=== PATIENT | male | born 1995 | race Caucasian/White ===

== ENCOUNTER 2021-01-02 05:40 | Emergency (ER) | payer OTHER ==
[~2021-01-02] VITALS: Ht 180.3 cm; Wt 117.5 kg
[2021-01-02 05:46] VITALS: BP 130/92
== END 2021-01-02 07:40 | disposition home or self-care (01) ==
LOC: ER 05:40
DX: J01.90 Acute sinusitis, unspecified (principal)

== ENCOUNTER 2023-01-20 10:57 | Emergency (ER) | payer OTHER ==
[~2023-01-20] VITALS: Ht 182.9 cm; Wt 119.2 kg
[2023-01-20 11:30] VITALS: BP 118/72; PULSE 94; RESP 18; TEMP 98.4; O2SAT 96
[2023-01-20] MEDS ORDERED: IBU600T PO (11:53)
[2023-01-20] MEDS ORDERED: HYDROcodone-ACET 5/325MG TAB PO ONE (12:00)
== END 2023-01-20 12:16 | disposition home or self-care (01) ==
LOC: ER 10:57
DX: S62.394A Other fracture of fourth metacarpal bone, right hand, initial encounter for closed fracture (principal); Z88.8 Allergy status to other drugs, medicaments and biological substances; V89.2XXA Person injured in unspecified motor-vehicle accident, traffic, initial encounter; Y93.I9 Activity, other involving external motion; Y92.89 Other specified places as the place of occurrence of the external cause; Y99.8 Other external cause status
CPT/HCPCS: 29125